=== PATIENT | male | born 1965 | race Caucasian/White ===

== ENCOUNTER 2018-02-14 16:27 | Emergency (ER) | payer MEDICAID ==
[2018-02-14 16:39] VITALS: BP 138/80
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
== END 2018-02-14 17:22 | disposition home or self-care (01) ==
LOC: MW.ED 16:27
DX: Z13.9 Encounter for screening, unspecified (principal); F17.210 Nicotine dependence, cigarettes, uncomplicated; Z88.8 Allergy status to other drugs, medicaments and biological substances; Z79.899 Other long term (current) drug therapy
CPT/HCPCS: 82962; 99282